=== PATIENT | male | born 1990 | race Caucasian/White ===

== ENCOUNTER 2016-09-22 18:36 | Emergency (ER) | payer SELFPAY ==
[~2016-09-22] VITALS: Ht 180.3 cm; Wt 109.5 kg
[2016-09-22 19:04] VITALS: Ht 180.3 cm; Wt 109.5 kg
[2016-09-22] MEDS ORDERED: IBUPROFEN 600 MG TAB PO ONE (19:30)
[2016-09-22] MEDS ORDERED: DIPHTH/TET/ACEL PERTUSS (ADULT) 0.5 ML VIAL IM* ONE (19:30)
[2016-09-22] MEDS ORDERED: IBUP-1542 PO (19:46)
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
--- NOTE | 2016-09-22 20:14 | RADRPT ---
PROCEDURE: XR Elbow. CLINICAL INDICATION: Left elbow pain, concern for foreign body TECHNIQUE: AP, lateral and oblique views of the left elbow performed. COMPARISON: None. FINDINGS: There is no radiographic evidence of acute fracture or dislocation. There is no significant joint e ffusion. The joint spaces are preserved. The soft tissues are grossly unremarkable. No radiopaque foreign body is identified. IMPRESSION: 1. No radiographic evidence of acute osseous abnormality or significant joint effusion. 2. No radiopaque foreign body identified. RPTAT: UU .Rj Martinez MD, MD Date Time Electronically viewed and signed by .Rj Martinez MD, on 09/22/2016 20:13 .K/
[2016-09-22 20:39] VITALS: BP 130/77; PULSE 65; RESP 22; TEMP 98.7
== END 2016-09-22 20:37 | disposition home or self-care (01) ==
LOC: FTE 18:36
DX: S51.032A Puncture wound without foreign body of left elbow, initial encounter (principal); F17.210 Nicotine dependence, cigarettes, uncomplicated; W45.0XXA Nail entering through skin, initial encounter; Y92.9 Unspecified place or not applicable; Z23 Encounter for immunization
CPT/HCPCS: 90471; 90715

== ENCOUNTER 2017-02-04 18:32 | Emergency (ER) | payer OTHER ==
[~2017-02-04] VITALS: Ht 170.2 cm; Wt 112.0 kg
[~2017-02-04 18:32] MED LIST: IBUP-1542 PO
[2017-02-04 18:37] VITALS: Ht 170.2 cm; Wt 112.0 kg
[2017-02-04] MEDS ORDERED: ONDANSETRON 4 MG INJ IV STA (19:08)
[2017-02-04] MEDS ORDERED: SOD CHLORIDE 0.9% 1,000 ML IV STA (19:08)
[2017-02-04] MEDS ORDERED: KETOROLAC 30 MG INJ IV STA (19:08)
[2017-02-04] MEDS ORDERED: DIPHENHYDRAMINE 50 MG INJ IV STA (19:08)
[2017-02-04] MEDS ORDERED: FIORICET PO (20:04)
[2017-02-04 20:28] VITALS: BP 124/72; PULSE 56; RESP 18; TEMP 98.3
--- NOTE | 2017-02-04 23:12 | ERD ---
ER Documentation Chief Complaint Date/Time DATE: 02/04/17 TIME: 23:09 Chief Complaint headache x 1 day HPI 26-year-old male coming in complaining of headache 1 day. Patient denies head trauma. He has not taken medications for symptoms. Pain feels like a band wrapped around his head squeezing. Denies dizziness. Denies vomiting. Has a few episodes of nausea. Denies fever. Denies neck pain. Denies chest pain or shortness of breath. Denies vision changes. Does not describe this as the worst pain of his life. ROS All systems reviewed and are negative except as per history of present illness. Medications Home Meds Active Scripts Acetamin/Butalbital/Caffeine* (Fioricet*) [id number] Tab, 1 TAB PO Q6H Y for PAIN, #30 TAB Prov:SHAMAR CONTRERAS PA-C 02/04/17 Ibuprofen* (Motrin*) 600 Mg Tab, 600 MG PO Q6, #15 TAB Prov:ROWDY ORTA MD 09/22/16 Allergies Allergies: Coded Allergies: No Known Allergy (Unverified , 02/04/17) PMhx/Soc History of Surgery: No Anesthesia Reaction: No Hx Neurological Disorder: No Hx Respiratory Disorders: No Hx Cardiac Disorders: No Hx Psychiatric Problems: No Hx Miscellaneous Medical Probl: No Hx Alcohol Use: No Hx Substance Use: No Hx Tobacco Use: Yes Smoking Status: Light tobacco smoker Physical Exam Vitals Vital Signs Date Time Temp Pulse Resp B/P Pulse Ox O2 Delivery O2 Flow Rate FiO2 02/04/17 20:28 98.3 56 18 124/72 97 Room Air 02/04/17 18:37 98.3 64 20 138/92 100 Physical Exam GENERAL: The patient is well-appearing, well-nourished, in no acute distress HEENT: Atraumatic. Conjunctivae are pink. Pupils equal, round, and reactive to light. There is no scleral icterus. Tympanic membranes clear bilaterally. Oropharynx clear. No nystagmus or photophobia. NECK: C-spine is soft and supple. There is no meningismus. There is no cervical lymphadenopathy. No JVD. No bruits. No goiter. CHEST: Clear to auscultation bilaterally. There are no rales, wheezes or rhonchi. HEART: Regular rate and rhythm. No murmurs, clicks, rubs or gallops. No S3 or S4. NEUROLOGIC: Alert and oriented. Cranial nerves II through XII intact. Motor strength in all 4 extremities with 5 out of 5 strength. Sensation grossly intact. Normal speech and gait. Babinski negative. DTR 2+ throughout. SKIN: There is no apparent rash or petechiae. The skin is warm and dry. Results 24 hrs Current Medications Medications (Trade) Dose Ordered Sig/Aydin Route PRN Reason Start Time Stop Time Status Last Admin Dose Admin Sodium Chloride (NS) 1,000 ml @ 1,000 mls/hr Q1H STAT IV 02/04/17 19:08 02/04/17 20:07 DC 02/04/17 19:39 Ondansetron HCl (Zofran Inj) 4 mg ONCE STAT IV 02/04/17 19:08 02/04/17 19:10 DC 02/04/17 19:40 Ketorolac Tromethamine (Toradol) 30 mg ONCE STAT IV 02/04/17 19:08 02/04/17 19:10 DC 02/04/17 19:39 Diphenhydramine HCl (Benadryl) 25 mg ONCE STAT IV 02/04/17 19:08 02/04/17 19:10 DC 02/04/17 19:37 Procedures/MDM ER Course: 1 L of normal saline given in ED. IV Toradol, IV Benadryl, IV Zofran given. Upon reevaluation patient's headache had resolved. MDM: 26-year-old male coming in complaining of headache. I have low suspicion for intracranial hemorrhage or mass-effect. I have low suspicion for neurodeficit. Patient's exam was not concerning. I did not feel that there is indication for CT scan at this time. Patient's pain resolved with medication and fluids. I have low suspicion for meningitis. Patient will be discharged with pain medication and recommended to follow-up with primary care physician within 1-2 days for close evaluation. All other questions answered time of discharge. Patient is to comply plan. Departure Diagnosis: Primary Impression: Headache Condition: Stable Patient Instructions: Self-Care for Headaches Referrals: COMMUNITY CLINICS YOU HAVE RECEIVED A MEDICAL SCREENING EXAM AND THE RESULTS INDICATE THAT YOU DO NOT HAVE A CONDITION THAT REQUIRES URGENT TREATMENT IN THE EMERGENCY DEPARTMENT. FURTHER EVALUATION AND TREATMENT OF YOUR CONDITION CAN WAIT UNTIL YOU ARE SEEN IN YOUR DOCTORS OFFICE WITHIN THE NEXT 1-2 DAYS. IT IS YOUR RESPONSIBILITY TO MAKE AN APPOINTMENT FOR FOLOW-UP CARE. IF YOU HAVE A PRIMARY DOCTOR --you should call your primary doctor and schedule an appointment IF YOU DO NOT HAVE A PRIMARY DOCTOR YOU CAN CALL OUR PHYSICIAN REFERRAL HOTLINE AT IF YOU CAN NOT AFFORD TO SEE A PHYSICIAN YOU CAN CHOSE FROM THE FOLLOWING [facility] [address] [facility] [address] [facility] [address] [facility] [address] [facility] [address] [facility] [facility]. [address] Additional Instructions: FOLLOW UP WITH YOUR PRIMARY CARE PHYSICIAN TOMORROW.Return to this facility if you are not improving as expected. SHAMAR CONTRERAS PA-C Feb 04, 2017 23:12
== END 2017-02-04 20:28 | disposition home or self-care (01) ==
LOC: FTE 18:32
DX: R51 Headache (principal); F17.210 Nicotine dependence, cigarettes, uncomplicated; R11.0 Nausea
CPT/HCPCS: 96374; 96375; J1200; J1885; J2405; J7030; Z7502

== ENCOUNTER 2018-11-26 15:31 | Emergency (ER) | payer OTHER ==
[~2018-11-26] VITALS: Ht 180.3 cm; Wt 122.0 kg
[~2018-11-26 15:31] MED LIST changes: +FIORICET PO
[2018-11-26 15:34] VITALS: BP 145/82; PULSE 92; RESP 18; Ht 180.3 cm; Wt 122.0 kg
[2018-11-26] MEDS ORDERED: KETOROLAC 30 MG INJ IM STA (16:15)
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
[2018-11-26] MEDS ORDERED: HYDR-4011 PO (17:46)
[2018-11-26] MEDS ORDERED: IBUP-1542 PO (17:46)
[2018-11-26] MEDS ORDERED: PRED20TA PO (17:46)
== END 2018-11-26 18:05 | disposition home or self-care (01) ==
LOC: FTE 15:31
DX: M25.571 Pain in right ankle and joints of right foot (principal); M54.9 Dorsalgia, unspecified; M25.572 Pain in left ankle and joints of left foot; R07.81 Pleurodynia; M25.511 Pain in right shoulder; M25.562 Pain in left knee; Z87.891 Personal history of nicotine dependence
CPT/HCPCS: 71100; 72072; 73562; 73610; 73630; 96372; J1885; Z7502